=== PATIENT | male | born 1965 | race African-American/Black ===

== ENCOUNTER 2017-05-12 11:05 | Emergency (ER) | payer OTHER ==
[2017-05-12 11:19] VITALS: BP 141/88
[2017-05-12 11:48] LABS: Basophils % (Auto) 0.3 % (0.0-1.8); Eosinophils % (Auto) 0.5 % (0.0-4.3); Hematocrit 44.9 % (35.5-45.6); Hemoglobin 15.5 gm/dl (11.8-15.2); Mean Corpuscular HGB Conc 34 % (32-34); Mean Corpuscular Hemoglobin 32 pg (28-32); Mean Corpuscular Volume 92 fl (84-94); Platelet Count 261 K/mm3 (140-440); Red Blood Count 4.87 M/mm3 (3.65-5.03); Red Cell Distribution Width 12.7 % (13.2-15.2); White Blood Count 9.8 K/mm3 (4.5-11.0)
[2017-05-12 12:07] LABS: Alanine Aminotransferase 33 units/L (7-56); Albumin 4.4 g/dL (3.9-5); Albumin/Globulin Ratio 1.2 %; Alkaline Phosphatase 85 units/L (35-129); Blood Urea Nitrogen 14 mg/dL (9-20); Calcium 8.9 mg/dL (8.4-10.2); Carbon Dioxide 26 mmol/L (22-30); Glucose 122 mg/dL (75-100); Lipase 45 units/L (13-60); Total Protein 8.1 g/dL (6.3-8.2)
[2017-05-12 12:08] LABS: Anion Gap 17 mmol/L; Chloride 98.8 mmol/L (98-107); Potassium 4.5 mmol/L (3.6-5.0); Sodium 137 mmol/L (137-145)
[2017-05-12 12:13] LABS: Bilirubin,Urine NEG (Negative); Blood,Urine NEG (Negative); Ketones,Urine NEG (Negative); Leukocyte Esterase,Urine NEG (Negative); Mucus,Urine 3+ /HPF; Nitrite,Urine NEG (Negative); Protein,Urine <15 mg/dL mg/dL (Negative); Urobilinogen,Urine < 2.0 mg/dL (<2.0); WBC,Urine < 1.0 /HPF (0.0-6.0)
--- NOTE | 2017-05-13 00:15 | ED Elopement Review ---
ED Pt Elopement review - Results review Lab results: Laboratory Tests 05/12/17 05/12/17 05/12/17 11:25 11:34 11:34 WBC 9.8 RBC 4.87 Hgb 15.5 H Hct 44.9 MCV 92 MCH 32 MCHC 34 RDW 12.7 L Plt Count 261 Lymph % (Auto) 26.8 [place] % (Auto) 9.5 H Eos % (Auto) 0.5 Baso % (Auto) 0.3 Lymph # 2.6 [place] # 0.9 H Eos # 0.1 Baso # 0.0 Seg Neutrophils % 62.9 Seg Neutrophils # 6.2 Sodium 137 Potassium 4.5 Chloride 98.8 Carbon Dioxide 26 Anion Gap 17 BUN 14 Creatinine 1.0 Estimated GFR > 60 BUN/Creatinine Ratio 14.00 Glucose 122 H Calcium 8.9 Total Bilirubin 0.30 AST 25 ALT 33 Alkaline Phosphatase 85 Total Protein 8.1 Albumin 4.4 Albumin/Globulin Ratio 1.2 Lipase 45 Urine Color Yellow Urine Turbidity Clear Urine pH 6.0 Ur Specific [place] 1.020 Urine Protein <15 mg/dl Urine Glucose (UA) Neg Urine Ketones Neg Urine Blood Neg Urine Nitrite Neg Urine Bilirubin Neg Urine Urobilinogen < 2.0 Ur Leukocyte Esterase Neg Urine WBC (Auto) < 1.0 Urine RBC (Auto) 5.0 Urine Mucus 3+ - Call Back decision Pt Call Back Decision: No action required
== END 2017-05-12 17:00 | disposition left against medical advice (07) ==
LOC: ED 11:05
DX: R12 Heartburn (principal); K21.9 Gastro-esophageal reflux disease without esophagitis; E78.00 Pure hypercholesterolemia, unspecified; Z53.21 Procedure and treatment not carried out due to patient leaving prior to being seen by health care provider
CPT/HCPCS: 36415; 80053; 81001; 83690; 85025; 93005; 93010

== ENCOUNTER 2022-07-01 15:22 | Emergency (ER) | payer SELFPAY ==
--- NOTE | 2022-07-01 16:51 | Cat Scan Report ---
CT HEAD WITHOUT CONTRAST INDICATION / CLINICAL INFORMATION: facial droop, headache. TECHNIQUE: All CT scans at this location are performed using CT dose reduction for ALARA by means of automated exposure control. COMPARISON: None available. FINDINGS: HEMORRHAGE: None. EXTRA-AXIAL SPACES: Normal in size and morphology for the patient's age. VENTRICULAR SYSTEM: Normal in size and morphology for the patient's age. CEREBRAL PARENCHYMA: No significant abnormality. No acute territorial infarct. MIDLINE SHIFT / HERNIATION: None. CEREBELLUM / BRAINSTEM: No significant abnormality. ORBITS: Normal as visualized. SOFT TISSUES: No significant abnormality. SKULL: No significant abnormality. PARANASAL SINUSES / MASTOID AIR CELLS: Normal as visualized. ADDITIONAL FINDINGS: None. IMPRESSION: 1. No acute intracranial pathology demonstrated by CT. Given history, more sensitive MRI should be co nsidered as indicated. Signer Name: Carolina Mcdaniels MD Signed: 07/01/2022 4:47 PM Workstation Name: [id number]
[2022-07-01 17:54] LABS: Alanine Aminotransferase 21 units/L (7-56); BUN/Creatinine Ratio 14; Basophils % (Auto) 0.4 % (0.0-1.8); Blood Urea Nitrogen 13 mg/dL (9-20); Calcium 9.9 mg/dL (8.4-10.2); Eosinophils # (Auto) 0.1 K/mm3 (0.0-0.4); Hematocrit 45.6 % (35.5-45.6); Hemoglobin 15.5 gm/dl (11.8-15.2); Hemolysis Index 19; Lymphocytes # (Auto) 3.2 K/mm3 (1.2-5.4); Lymphocytes % (Auto) 34.1 % (13.4-35.0); Mean Corpuscular HGB Conc 34 % (32-34); Mean Corpuscular Volume 92 fl (84-94); Monocytes # (Auto) 0.7 K/mm3 (0.0-0.8); Monocytes % (Auto) 7.4 % (0.0-7.3); Platelet Count 263 K/mm3 (140-440); Red Blood Count 4.93 M/mm3 (3.65-5.03); Red Cell Distribution Width 12.8 % (13.2-15.2)
[2022-07-01] MEDS ORDERED: methylPREDNISolone Sod Succinate 40 MG/1 ML INJ IM ONE (21:59)
--- NOTE | 2022-07-01 21:59 | Emergency Department Report ---
ED General Adult HPI - General Chief complaint: Neuro Symptoms/Deficit Stated complaint: POSSIBLE STROKE PUI?: No Time Seen by Provider: 07/01/22 15:47 Source: patient Mode of arrival: Ambulatory Limitations: Language Barrier - History of Present Illness Initial comments: 57-year-old male came in today with concerns of left facial complete weakness for the past 2 days. According to patient he fell and hit his head 2 days ago a s well. Patient notes that ever since then he is got left upper and left lower facial weakness. Patient said that at nighttime he is not able to close his eyes and there is sagging and drooling of his left lower facial muscle area causing him to have drooping lips. Patient said that he is not able to wrinkle his left forehead and also left eyebrow droop. Patient denies any other symptoms. Patient denies fever chill night sweat dizziness blurred vision lightheadedness headache tinnitus ear pain runny nose sore throat loss of taste loss of smell chest pain palpitation shortness of breath abdominal discomfort nausea vomiting diarrhea constipation joint pain muscle pain new rash heat or cold intolerance - Related Data Home Medications Medication Instructions Recorded Confirmed Last Taken Simvastatin 10 mg PO QHS 05/27/14 05/27/14 05/26/14 Previous Rx's Medication Instructions Recorded Last Taken Type Valacyclovir HCl [Valacyclovir] 1,000 mg PO Q8H #21 07/01/22 Unknown Rx methylPREDNISolone [Medrol 4MG 4 mg PO DAILY #1 07/01/22 Unknown Rx DOSEPAK (21 tabs)] Allergies Allergy/AdvReac Type Severity Reaction Status Date / Time No Known Allergies Allergy Verified 05/27/14 08:39 ED Review of Systems ROS: Stated complaint: POSSIBLE STROKE Other details as noted in HPI Comment: All other systems reviewed and negative Constitutional: no symptoms reported Eyes: other (CAN'T CLOSE LEFT EYE FOR THE PAST 2 DAYS; DROOPING LEFT EYE) Respiratory: no symptoms reported, see HPI Cardiovascular: as per HPI Endocrine: no symptoms reported, see HPI Gastrointestinal: as per HPI Musculoskeletal: as per HPI Skin: as per HPI Neurological: other (DROOPING OF LEFT LOWER MOUTH/LIPS; CAN'T ) Psychiatric: as per HPI Hematological/Lymphatic: as per HPI ED Past Medical Hx - Past Medical History Hx Hypertension: No Hx GERD: Yes Hx Liver Disease: No Hx Renal Disease: No Hx Seizures: No Additional medical history: high cholesterol - Social History Smoking Status: Never Smoker Substance Use Type: None - Medications Home Medications: Home Medications Medication Instructions Recorded Confirmed Last Taken Type Simvastatin 10 mg PO QHS 05/27/14 05/27/14 05/26/14 History Valacyclovir HCl [Valacyclovir] 1,000 mg PO Q8H #21 07/01/22 Unknown Rx methylPREDNISolone [Medrol 4MG 4 mg PO DAILY #1 07/01/22 Unknown Rx DOSEPAK (21 tabs)] ED Physical Exam - General Limitations: Language Barrier General appearance: alert, in no apparent distress - Head Head exam: Present: atraumatic, normocephalic, normal inspection - Eye Eye exam: Present: normal appearance, other (INABILITY TO CLOSE THE LEFT EYE) Pupils: Present: normal accommodation - Neck Neck exam: Present: normal inspection, full ROM - Respiratory Respiratory exam: Present: normal lung sounds bilaterally - Cardiovascular Cardiovascular Exam: Present: regular rate, normal rhythm, normal heart sounds - GI/Abdominal GI/Abdominal exam: Present: soft - Extremities Exam Extremities exam: Present: normal inspection, full ROM - Back Exam Back exam: Present: normal inspection, full ROM - Neurological Exam Neurological exam: Present: alert, oriented X3, CN II-XII intact, other - Psychiatric Psychiatric exam: Present: normal affect, normal mood - Skin Skin exam: Present: normal color - Other Other exam information: FLATTENING OF THE 'WRINKLE LINE' OF LEFT UPPER FOREHEAD. THERE IS DROOPING OF THE CORNER OF THE MOUTH. LEFT EYE APPEARS INJECTED. ED Medical Decision Making - Lab Data Result diagrams: 07/01/22 15:57 07/01/22 15:57 Critical care attestation.: If time is entered above; I have spent that time in minutes in the direct care of this critically ill patient, excluding procedure time. ED Disposition Clinical Impression: Facial paralysis/Strawberry palsy Disposition: 01 HOME / SELF CARE / HOMELESS Is pt being admited?: No Does the pt Need Aspirin: No Condition: Stable Instructions: Henson Palsy, Adult Additional Instructions: TAKE MEDICATION THAT'S PRESCRIBED FOR YOU AND MAKE A FOLLOW UP APPOINTMENT WITH YOUR PRIMARY CARE PROVIDER DR. WARREN HERNANDEZ TO BE SEEN WITHIN 3 DAYS FOR FURTHER OUTPATIENT EVALUATION OF YOUR HENSON'S PALSY WITH POSSIBLE MRI OF THE HEAD. Prescriptions: methylPREDNISolone [Medrol 4MG DOSEPAK (21 tabs)] 4 mg PO DAILY #1 Valacyclovir HCl [Valacyclovir] 1,000 mg PO Q8H #21 Time of Disposition: 22:10
[2022-07-01] MEDS ORDERED: valACYclovir 500 MG TAB PO ONE (22:45)
[2022-07-01] MEDS ORDERED: HYPROMELLOSE 0.5% OPHTH SOLN 15 ML OU ONE (22:59)
[2022-07-01 23:34] VITALS: BP 139/73
== END 2022-07-01 23:34 | disposition home or self-care (01) ==
LOC: ED 15:22
DX: G51.0 Bell's palsy (principal); K21.9 Gastro-esophageal reflux disease without esophagitis
CPT/HCPCS: 36415; 70450; 80053; 85025; 96372; 99284; J2920